=== PATIENT | male | born 1965 | race Caucasian/White ===

== ENCOUNTER 2018-03-31 15:06 | Emergency (ER) | payer MEDICAID, SELFPAY ==
[2018-03-31 15:19] VITALS: RESP 18; TEMP 98.4; O2SAT 99
[2018-03-31] MEDS ORDERED: Sodium Chloride 0.9% 1,000 ML IV STA (16:03)
[2018-03-31] MEDS ORDERED: Alum-Mag Hydrox-Simethicone Susp (30 mL) PO STA (16:03)
[2018-03-31 16:25] LABS: BASO # 0.1 K/uL (0.0-0.2); BASO % 0.7 % (0.0-2.0); EOS # 0.1 K/uL (0.0-0.7); EOS % 1.5 % (0.0-4.0); HEMOGLOBIN 14.4 g/dL (12.0-18.0); LYMPH # 2.3 K/uL (1.0-4.3); LYMPH % 31.1 % (20.0-40.0); MEAN CELL VOLUME 92.9 fl (80.0-94.0); MEAN CORPUSCULAR HEMOGLOBIN 30.7 pg (27.0-31.0); MEAN CORPUSCULAR HGB CONC 33.1 g/dL (33.0-37.0); MEAN PLATELET VOLUME 10.5 fl (7.2-11.7); MONO # 0.7 K/uL (0.0-0.8); NEUT # 4.3 K/uL (1.8-7.0); NEUT % 57.7 % (50.0-75.0); NRBC % 0.1 % (0.0-0.0); RBC 4.68 Mil/uL (4.40-5.90); RED CELL DISTRIBUTION WIDTH 12.8 % (11.5-14.5); WHITE BLOOD COUNT 7.5 K/uL (4.8-10.8)
[2018-03-31 16:27] LABS: URINE BILIRUBIN NEGATIVE (NEGATIVE); URINE BLOOD NEGATIVE (NEGATIVE); URINE CLARITY CLEAR (Clear); URINE COLOR YELLOW (YELLOW); URINE GLUCOSE (UA) NEG (Normal); URINE LEUKOCYTE ESTERASE NEG Leu/uL (Negative); URINE PROTEIN NEGATIVE (NEGATIVE); URINE UROBILINOGEN 0.2-1.0 mg/dL (0.2-1.0)
[2018-03-31 16:39] LABS: ALB/GLOB RATIO 1.4 (1.0-2.1); ALBUMIN 3.9 g/dL (3.5-5.0); ALT/SGPT 29 U/L (21-72); AST/SGOT 24 U/L (17-59); BLOOD UREA NITROGEN 13 mg/dl (9-20); GFR NON-AFRICAN AMERICAN > 60; LIPASE 48 U/L (23-300)
[2018-03-31] MEDS ORDERED: Alum-Mag Hydrox-Simethicone Susp (30 mL) ONE (16:42)
--- NOTE | 2018-03-31 16:44 | ED PDOC ---
HPI: Abdomen Time Seen by Provider: 03/31/18 15:44 Chief Complaint (Nursing): Abdominal Pain History Per: Patient Additional Complaint(s): Pt. states for the past 3 weeks he's had intermittent crampy lower abd pain associated with nausea, non-bloody vomiting, and non-bloody watery diarrhea. Also states that vomiting resolved 1 week ago. Pain is localized to the lower abdomen and is only present after eating. Denies dysuria, hematuria, frequency, hematemesis, melena, hematochezia, BRBPR. Pt. offered asl interpreter but refused. Past Medical History Reviewed: Historical Data, Nursing Documentation, Vital Signs Vital Signs: Last Vital Signs Temp 98.4 F 03/31/18 15:17 Pulse 70 03/31/18 19:07 Resp 18 03/31/18 19:07 BP 110/70 03/31/18 19:07 Pulse Ox 99 03/31/18 20:02 - Medical History PMH: Gastrointestinal Ulcer - Family History Family History: States: No Known Family Hx - Home Medications Home Medications: Ambulatory Orders Medication Instructions Recorded Dicyclomine [Bentyl] 20 mg PO TID PRN #15 tab 03/31/18 Famotidine [Pepcid] 20 mg PO DAILY PRN #10 tab 03/31/18 - Allergies Allergies/Adverse Reactions: Allergies Allergy/AdvReac Type Severity Reaction Status Date / Time No Known Allergies Allergy Verified 03/31/18 15:17 Review of Systems ROS Statement: Except As Marked, All Systems Reviewed And Found Negative Gastrointestinal: Positive for: Nausea, Vomiting, Abdominal Pain, Diarrhea Physical Exam - Physical Exam Appears: Positive for: Well, Non-toxic, No Acute Distress Skin: Positive for: Normal Color, Warm. Negative for: Rash Eye Exam: Positive for: Normal appearance. Negative for: Scleral icterus Cardiovascular/Chest: Positive for: Regular Rate, Rhythm Respiratory: Positive for: CNT, Normal Breath Sounds Gastrointestinal/Abdominal: Positive for: Normal Exam, Bowel Sounds, Soft. Negative for: Tenderness Back: Positive for: Normal Inspection. Negative for: L CVA Tenderness, R CVA Tenderness Neurologic/Psych: Positive for: Alert, Oriented (x3) - Laboratory Results Result Diagrams: 03/31/18 16:22 03/31/18 16:22 - ECG O2 Sat by Pulse Oximetry: 99 - Progress ED Course And Treament: Labs, bentyl 20mg PO, pepcid 40mg IV, maalox 30ml PO, IV NS bolus x 1 ordered. Re-evaluation Time: 17:00 (Abd soft and non-tender.) Condition: Re-examined, Improved Disposition - Clinical Impression Clinical Impression: Dyspepsia - Patient ED Disposition Is Patient to be Admitted: No - Disposition Referrals: Reymundo Juan MD [Medical Doctor] - [facility] [Outside] [facility] [Outside] Disposition: Routine/Home Disposition Time: 17:03 Condition: IMPROVED Additional Instructions: TITA APONTE, thank you for letting us take care of you today. Your provider was Kacey Orozco MD and you were treated for ABD PAIN. The emergency medical care you received today was directed at your acute symptoms. If you were prescribed any medication, please fill it and take as directed. It may take several days for your symptoms to resolve. Return to the Emergency Department if your symptoms worsen, do not improve, or if you have any other problems. Please contact your doctor or call one of the physicians/clinics you have been referred to that are listed on the Patient Visit Information form that is included in your discharge packet. Bring any paperwork you were given at discharge with you along with any medications you are taking to your follow up visit. Our treatment cannot replace ongoing medical care by a primary care provider outside of the emergency department. Thank you for allowing the [facility] team to be part of your care today. If you had an X-Ray or CT scan: A Radiologist will review the ED reading if any change in treatment is needed we will contact you. If you had a blood, urine, or wound culture: It will take several days for the results, if any change in treatment is needed we will contact you. If you had an STI test: It will take 48 hours for the results. Please call after 1 week if you have not heard back. Prescriptions: Dicyclomine [Bentyl] 20 mg PO TID PRN #15 tab PRN Reason: abdominal pain Famotidine [Pepcid] 20 mg PO DAILY PRN #10 tab PRN Reason: Dyspepsia Instructions: Dyspepsia (DC) Forms: [employer] (Polish)
--- NOTE | 2018-03-31 17:39 | RAD ---
Date of service: 03/31/2018 PROCEDURE: Radiographs of the chest and abdomen (obstructive series) HISTORY: abd pain COMPARISON: No prior. TECHNIQUE: AP radiograph of the chest, with upright and supine radiographs of the abdomen. FINDINGS: CHEST: Lungs: Clear. Cardiovascular: Normal size heart. No pulmonary vascular congestion. Pleura: No pleural fluid. No pneumothorax. Other findings: None. ABDOMEN AND PELVIS: Bowel: Unremarkable bowel gas pattern. No evidence of mechanical obstruction. Free air: None. Bones: Unremarkable. Other findings: None. IMPRESSION: Unremarkable radiographs of chest and abdomen. No evidence of mechanical bowel obstruction.
[2018-03-31 19:07] VITALS: BP 110/70; PULSE 70
== END 2018-03-31 18:52 | disposition home or self-care (01) ==
LOC: H.ER 15:06
DX: R10.13 Epigastric pain (principal)
CPT/HCPCS: 74022; 80053; 81003; 83690; 85025; 96374; 96375; 99283; J2405; J7030